=== PATIENT | female | born 2000 | race American Indian/Alaskan Native ===

== ENCOUNTER → 2021-04-25 01:40 | Emergency (ER) | payer SELFPAY | END | disposition left against medical advice (07) | LOC: ED 01:40 | DX: Z20.828 Contact with and (suspected) exposure to other viral communicable diseases (principal); Z53.21 Procedure and treatment not carried out due to patient leaving prior to being seen by health care provider ==

== ENCOUNTER 2022-02-23 11:05 | Emergency (ER) | payer OTHER ==
[2022-02-23] MEDS ORDERED: LORazepam 2 MG/ML VIAL ONE (11:15)
--- NOTE | 2022-02-23 11:26 | Emergency Department Report ---
ED Seizure HPI - General Stated Complaint: SEIZURE Time Seen by Provider: 02/23/22 11:20 Source: EMS Limitations: No Limitations - History of Present Illness Initial Comments: Patient is a 21-year-old female brought in by EMS from work for evaluation of multiple seizures that began approximately 30 minutes ago. She was at work when the first seizure began. Her seizures are described as generalized tonic-clonic activity lasting approximately 35 to 45 seconds with postictal period lasting anywhere from 3 to 5 minutes. She is able to talk after this. EMS reports 6 seizures prior to arrival for which she was given a total of 10 mg of Versed. She denies past history of seizures however her father has history of epilepsy. - Related Data Allergies Allergy/AdvReac Type Severity Reaction Status Date / Time No Known Allergies Allergy Unverified 02/23/22 11:25 ED Review of Systems ROS: Stated complaint: SEIZURE Other details as noted in HPI Comment: All other systems reviewed and negative Constitutional: denies: chills, fever Respiratory: denies: cough, shortness of breath, wheezing Cardiovascular: denies: chest pain, palpitations Gastrointestinal: denies: abdominal pain, nausea, diarrhea Genitourinary: denies: urgency, dysuria, discharge Musculoskeletal: denies: back pain, joint swelling, arthralgia Skin: denies: rash, lesions Neurological: denies: headache, weakness, paresthesias Psychiatric: denies: anxiety, depression ED Physical Exam - General Limitations: No Limitations General appearance: alert, in no apparent distress - Head Head exam: Present: atraumatic - Eye Eye exam: Present: normal appearance - Neck Neck exam: Present: normal inspection - Respiratory Respiratory exam: Present: normal lung sounds bilaterally. Absent: respiratory distress - Cardiovascular Cardiovascular Exam: Present: regular rate, normal rhythm, normal heart sounds - GI/Abdominal GI/Abdominal exam: Present: soft. Absent: distended, tenderness - Rectal Rectal exam: Present: deferred - Neurological Exam Neurological exam: Present: alert, oriented X3, CN II-XII intact - Psychiatric Psychiatric exam: Present: normal affect, normal mood - Skin Skin exam: Present: warm, dry, intact, normal color ED Course Vital Signs 02/23/22 02/23/22 02/23/22 11:22 16:10 16:17 Temperature 98.4 F Pulse Rate 117 H 102 H Respiratory 16 16 Rate Blood Pressure 111/75 113/78 [Left] O2 Sat by Pulse 100 99 99 Oximetry ED Medical Decision Making - Lab Data Result diagrams: 02/23/22 11:32 02/23/22 11:32 - Medical Decision Making Patient had witnessed seizure-like activity event in the ED lasting approximately 1 minute. During this time she exhibited purposeful eye movements. She was able to speak roughly 1 to [address] head was obtained and is unremarkable. Labs are grossly unremarkable. UDS positive for THC, otherwise clean. Differential diagnosis includes seizure, pseudoseizure, acute stress reaction, conversion disorder. On final reassessment patient is awake and alert I encouraged the mother to follow-up with PCP and or neurology at earliest convenience for further outpatient work-up. Critical care attestation.: If time is entered above; I have spent that time in minutes in the direct care of this critically ill patient, excluding procedure time. ED Disposition Clinical Impression: Seizure-like activity Disposition: 01 HOME / SELF CARE / HOMELESS Is pt being admited?: No Condition: Stable Instructions: Seizure, Adult, [id number], Non-Epileptic Seizures, Adult Time of Disposition: 18:17
[2022-02-23 12:24] LABS: Basophils % (Auto) 0.4 % (0.0-1.8); Eosinophils % (Auto) 1.1 % (0.0-4.3); Hematocrit 36.6 % (30.3-42.9); Hemoglobin 12.8 gm/dl (10.1-14.3); Lymphocytes # (Auto) 0.4 K/mm3 (1.2-5.4); Lymphocytes % (Auto) 8.6 % (13.4-35.0); Mean Corpuscular HGB Conc 35 % (30-34); Mean Corpuscular Volume 86 fl (79-97); Monocytes # (Auto) 0.7 K/mm3 (0.0-0.8); Monocytes % (Auto) 14.8 % (0.0-7.3); Platelet Count 188 K/mm3 (140-440); Red Blood Count 4.24 M/mm3 (3.65-5.03); Red Cell Distribution Width 13.2 % (13.2-15.2)
[2022-02-23] MEDS: LORazepam 2 MG/ML VIAL IV SCH (14:43)
[2022-02-23 14:55] LABS: HCG Qualitative,Urine Negative (Negative)
[2022-02-23 15:09] LABS: Bilirubin,Urine NEG (Negative); Blood,Urine SM (Negative); Color,Urine Yellow (Yellow); Mucus,Urine FEW /HPF; Protein,Urine <15 mg/dL mg/dL (Negative); Urobilinogen,Urine < 2.0 mg/dL (<2.0)
--- NOTE | 2022-02-23 15:34 | Cat Scan Report ---
CT head/brain wo con INDICATION: Seizure. TECHNIQUE: Routine CT head without contrast. All CT scans at this location are performed using CT dos e reduction for ALARA by means of automated exposure control. COMPARISON: None. FINDINGS: BRAIN / INTRACRANIAL CONTENTS: No acute hemorrhage, mass effect, midline shift, or hydrocephalus. No appreciable acute large territorial or lacunar infarct. No chronic infarct or focal atrophy. Normal b rain volume and ventricular/sulcal size for age. ORBITS: No significant abnormality of visualized orbits. SINUSES / MASTOIDS: No significant abnormality of visualized sinuses and mastoid air cells. ADDITIONAL FINDINGS: None. IMPRESSION: 1. No acute intracranial abnormality. Signer Name: Balta Ace MD Signed: 02/23/2022 3:30 PM Workstation Name: [id number]
[2022-02-23 16:18] LABS: Amphetamine Screen,Urine Negative; Benzodiazepines Screen,Urine Positive; Cannabinoid Screen,Urine Positive; Cocaine Screen,Urine Negative; Methadone Screen,Urine Negative; Opiate Screen,Urine Negative
[2022-02-23 17:08] LABS: Alanine Aminotransferase 12 units/L (7-56); Albumin 4.6 g/dL (3.9-5); Blood Urea Nitrogen 9 mg/dL (7-17); Calcium 9.1 mg/dL (8.4-10.2); Hemolysis Index 27
[2022-02-23 17:19] LABS: BUN/Creatinine Ratio 15
--- NOTE | 2022-02-23 18:03 | XRay Report ---
CHEST 1 VIEW 02/23/2022 5:42 PM INDICATION / CLINICAL INFORMATION: Shortness of breath. COMPARISON: None available. FINDINGS: SUPPORT DEVICES: None. HEART / MEDIASTINUM: No significant abnormality. LUNGS / PLEURA: No significant pulmonary or pleural abnormality. No pneumothorax. ADDITIONAL FINDINGS: No significant additional findings. IMPRESSION: 1. No acute findings. Signer Name: Kris Lebron MD Signed: 02/23/2022 5:58 PM Workstation Name: [id number]
[2022-02-23 18:53] VITALS: BP 128/75
--- NOTE | 2022-02-27 09:12 | Electrocardiograph Report ---
[facility] Test Date: 2022-02-23 Test Time: 11:21:24 Pat Name: ELLIS ANDRADE Department: Room: Gender: F [employer] In[employer] Adjunct: GP : [id number] Requested By: OPAL HERNANDEZ Order Number: [id number] Reading MD: Liu Handy Measurements Intervals [place] Rate: 107 P: 76 [place]: 121 QRS: 70 QRSD: 72 T: 11 QT: 319 QTc: 425 Interpretive Statements Sinus tachycardia No previous ECG available for comparison Electronically Signed On 02-27-2022 9:12:20 EDT by Liu Handy
== END 2022-02-23 18:53 | disposition home or self-care (01) ==
LOC: ED 11:05
DX: R56.9 Unspecified convulsions (principal)
CPT/HCPCS: 36415; 70450; 71045; 80053; 80307; 81001; 81025; 85025; 87086; 93005; 99285; J2060